=== PATIENT | female | born 1930 | race Caucasian/White ===

== ENCOUNTER 2016-04-26 08:21 | Emergency (ER) | payer MEDICARE, OTHER ==
[~2016-04-26 08:21] MED LIST: ATEN50TA PO; BENA20TA4 PO; MONTPOW2 PO; SIMV40TA96 PO; TRIA25CA PO
[2016-04-26 12:08] VITALS: BP 165/106
== END 2016-04-26 14:06 | disposition home or self-care (01) ==
LOC: EDBD 08:21 → ER 08:26
DX: M17.12 Unilateral primary osteoarthritis, left knee (principal); M25.642 Stiffness of left hand, not elsewhere classified; I48.91 Unspecified atrial fibrillation; J45.909 Unspecified asthma, uncomplicated; E78.5 Hyperlipidemia, unspecified; I10 Essential (primary) hypertension; Z88.6 Allergy status to analgesic agent
CPT/HCPCS: 73562; 93005